=== PATIENT | male | born 1945 | race Caucasian/White ===

== ENCOUNTER 2017-11-11 14:08 | Emergency (ER) | payer MEDICARE, OTHER ==
[2017-11-11] MEDS ORDERED: NS 0.9% 1000 ML* 1,000 ML IV ONE (14:11)
--- NOTE | 2017-11-11 15:46 | ED ---
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 History of two chronic pressure sores x years. Wound was evaluated one week ago by PCP, patient was placed on Keflex with no improvement. Patient cannot get appointment with wound care before , was advised to come to the ED for evaluation by PCP. Patient states he often gets sweats when he gets infection in his pressure ulcers. Patient has no sensation below the chest. Denies fever, N/V, cough, sore throat, CP, SOB. History of indwelling urinary catheter. - History of Current Complaint Chief Complaint: EDRashSkinAbscess Time Seen by Provider: 11/11/17 15:10 Stated Complaint: PRESSURE SORE ON TAILBONE Hx Obtained From: Patient, Family/Inbound Telemarketer Onset/Duration: Started Weeks Ago Pain Intensity: 0 Skin Location: Discrete Alleviating Symptom(s): Unknown Associated Signs & Symptoms: Diaphoresis - Allergy/Home Medications Allergies/Adverse Reactions: Allergies Allergy/AdvReac Type Severity Reaction Status Date / Time No Known Allergies Allergy Verified 11/11/17 14:18 Home Medications: Home Medications Cephalexin CAP* [Keflex CAP*] 500 mg PO QID 11/11/17 [History Confirmed 11/11/17 ] Citric AC/Gluconolact/Mag Carb [Renacidin Irrigation Solution] 30 ml IR EVERY OTHER DAY 11/11/17 [History Confirmed 11/11/17] Trospium Chloride [Trospium Chloride ER] 60 mg PO DAILY 11/11/17 [History Confirmed 11/11/17] PMH/Surg Hx/FS Hx/Imm Hx - Surgical History Surgery Procedure, Year, and Place: cervical fusion,decubiti ,bladder Infectious Disease History: No Infectious Disease History: Denies: Traveled Outside the [place] in Last 30 Days - Social History Alcohol Use: None Substance Use Type: Reports: None Smoking Status (MU): Never Smoked Tobacco Review of Systems Positive: Skin Diaphoresis Eyes: Negative ENT: Negative Cardiovascular: Negative Respiratory: Negative Gastrointestinal: Other Genitourinary: Other Musculoskeletal: Other Skin: Other Neurological: Other Psychological: Other All Other Systems Reviewed And Are Negative: Yes Physical Exam - Summary Physical Exam Summary: Pressure ulcer in upper gluteal cleft about the size of a quarter at opening, but penetrates deeply. + purulent drainage noted with foul odor present. Mild erythema locally. Triage Information Reviewed: Yes Vital Signs On Initial Exam: Initial Vitals Temp Pulse Resp BP Pulse Ox 98.5 F 88 17 133/91 98 11/11/17 14:14 11/11/17 14:14 11/11/17 14:14 11/11/17 14:14 11/11/17 14:14 Vital Signs Reviewed: Yes Appearance: Positive: Well-Appearing Skin: Positive: Warm Head/Face: Positive: Normal Head/Face Inspection Eyes: Positive: Normal Neck: Positive: Supple Respiratory/Lung Sounds: Positive: Clear to Auscultation Cardiovascular: Positive: Normal Abdomen Description: Positive: Other: Musculoskeletal: Positive: Other Neurological: Positive: Other Psychiatric: Positive: Normal AVPU Assessment: Alert - [place] Coma Scale Best Eye Response: 4 - Spontaneous Best Motor Response: 6 - Obeys Commands Best Verbal Response: 5 - Oriented Coma Scale Total: 15 Diagnostics - Vital Signs Vital Signs Temp Pulse Resp BP Pulse Ox 11/11/17 14:14 98.5 F 88 17 133/91 98 - Laboratory Result Diagrams: 11/11/17 15:53 11/11/17 18:41 Lab Statement: Any lab studies that have been ordered have been reviewed, and results considered in the medical decision making process. 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 History of two chronic pressure sores x years. Wound was evaluated one week ago by PCP, patient was placed on Keflex with no improvement. Patient cannot get appointment with wound care before , was advised to come to the ED for evaluation by PCP. Patient states he often gets sweats when he gets infection in his pressure ulcers. Patient has no sensation below the chest. Denies fever, N/V, cough, sore throat, CP, SOB. History of indwelling urinary catheter. Pressure ulcer in upper gluteal cleft about the size of a quarter at opening, but penetrates deeply. + purulent drainage noted with foul odor present. Mild erythema locally. Discussed patient with Dr. Sandoval. Vital signs within normal limits and stable. X-ray negative for osteomyelitis. Elevated CRP but labs otherwise unremarkable. Wound negative for MRSA. Patient does not meet criteria for admission. Patient is already tried Keflex 1 week. Will provide patient with Rx for Bactrim and have him follow up with wound care. manages wounds daily and appears very well informed and competent in this area. Has been packing the wound daily. - Diagnoses Provider Diagnoses: Decubitus ulcer Discharge - Sign-Out/Discharge Documenting (check all that apply): Discharge/Admit/Transfer - Discharge Plan Condition: Stable Disposition: HOME Prescriptions: Sulfamethox/Trimethoprim DS* [Bactrim DS 800/160 TAB*] 1 tab PO BID 10 Days #20 tab Patient Education Materials: Acute Wound Care (ED), Chronic Wound Care (ED), Pressure Ulcer (ED) Referrals: Melissa Foss [Primary Care Provider] - Additional Instructions: Follow-up with wound care. Switch from Keflex to Bactrim. Return to the ED for any new or worsening symptoms - Billing Disposition and Condition Condition: STABLE Disposition: Home
[2017-11-11 16:31] LABS: EGFR Non-African American 297.3 (>60)
--- NOTE | 2017-11-11 16:36 | RAD ---
Indication: Back pain. Ulcer in the buttocks. 4 views of lumbar spine are reviewed. There are bridging syndesmophytes at L3-L4, L2-L3 and L1-L2. There is decrease in height of these vertebra. 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
[2017-11-11 16:50] LABS: ABS Basophils 0 10^3/ul (0-0.2); ABS Eosinophils 0.1 10^3/ul (0-0.6); ABS Lymphocytes 0.7 10^3/ul (1.0-4.8); ABS Monocytes 0.7 10^3/ul (0-0.8); ABS Neutrophils 11.9 10^3/ul (1.5-7.7); ABS Nucleated RBC 0 10^3/ul; Eosinophil % 0.5 % (0-6); Hematocrit 36 % (42-52); Hemoglobin 12.1 g/dl (14.0-18.0); Lymphocyte % 5.2 % (25-47); Mean Corpuscular HGB Conc 33 g/dl (31-36); Mean Corpuscular Hemoglobin 29 pg (27-31); Mean Corpuscular Volume 88 fL (80-94); Mean Platelet Volume 7.5 um3 (7.4-10.4); Nucleated Red Blood Cells % 0; Platelet Count 460 10^3/ul (150-450); Red Blood Count 4.11 10^6/ul (4.0-5.4); Red Cell Distribution Width 14 % (10.5-15); White Blood Count 13.4 10^3/ul (3.5-10.8)
[2017-11-11] MEDS ORDERED: Sulfamethox/Trimethoprim DS 800/160* TAB PO ONE (19:26)
[2017-11-11 20:09] VITALS: BP 133/74
[2017-11-11 20:21] LABS: Urine Appearance Cloudy; Urine Blood Negative (Negative); Urine Color Yellow; Urine Ketones Negative (Negative); Urine Protein 1+(30 mg/dL) (Negative); Urine Specific Gravity 1.025 (1.010-1.030); Urine Urobilinogen Positive (Negative)
--- NOTE | 2017-11-13 07:12 | ED ---
Progress - Progress Note Progress Note: Patient's preliminary culture revealed Streptococcus Anginosus. Patient was started on Bactrim. Final results pending. 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 History of two chronic pressure sores x years. Wound was evaluated one week ago by PCP, patient was placed on Keflex with no improvement. Patient cannot get appointment with wound care before , was advised to come to the ED for evaluation by PCP. Patient states he often gets sweats when he gets infection in his pressure ulcers. Patient has no sensation below the chest. Denies fever, N/V, cough, sore throat, CP, SOB. History of indwelling urinary catheter. Pressure ulcer in upper gluteal cleft about the size of a quarter at opening, but penetrates deeply. + purulent drainage noted with foul odor present. Mild erythema locally. Discussed patient with Dr. Sandoval. Vital signs within normal limits and stable. X-ray negative for osteomyelitis. Elevated CRP but labs otherwise unremarkable. Wound negative for MRSA. Patient does not meet criteria for admission. Patient is already tried Keflex 1 week. Will provide patient with Rx for Bactrim and have him follow up with wound care. manages wounds daily and appears very well informed and competent in this area. Has been packing the wound daily. - Diagnoses Provider Diagnoses: Decubitus ulcer Discharge - Sign-Out/Discharge Documenting (check all that apply): Post-Discharge Follow Up - Discharge Plan Condition: Stable Disposition: HOME Prescriptions: Sulfamethox/Trimethoprim DS* [Bactrim DS 800/160 TAB*] 1 tab PO BID 10 Days #20 tab Patient Education Materials: Acute Wound Care (ED), Chronic Wound Care (ED), Pressure Ulcer (ED) Referrals: Melissa Foss [Primary Care Provider] - Additional Instructions: Follow-up with wound care. Switch from Keflex to Bactrim. Return to the ED for any new or worsening symptoms - Billing Disposition and Condition Condition: STABLE Disposition: Home
--- NOTE | 2017-11-14 09:03 | ED ---
Progress - Progress Note Progress Note: Patient's preliminary wound culture revealed Streptococcus Anginosus. Patient was started on Bactrim. Final results pending. UPDATE: Patient's final wound culture results reveal negative MRSA and negative staph. He does have Streptococcus Anginosus, Haemophilus parainfluenza, and Bacteroides thetaiotaomicron. The sensitivity results for Streptococcus Anginosus have returned and Bactrim does not appear on the list. This organism does appear to be sensitive however to Keflex which patient was taking prior to being seen in the ED without improvement. Patient's preliminary urine culture has also returned with 25-50,000 pseudomonas aeruginosa. Spoke w/ Dr. Stephens - would consider augmentin if pt is worse. Spoke w/ pt - fever last night but none today and feels he may be a little better overall since switching to bactrim. reports wound is same (no better, no worse). Discussed that he has multiple organisms present in his wound as well as a UTI. Offered care in the ED today given his recent labs findings (13 wbc w/ left shift) but they prefer to wait for wound clinic visit tomorrow. They also want to refrain from starting tx for UTI today and will f/u w/ wound clinic provider tomorrow (they are scheduled to see Dr. Starr or Dr. Dutta at 9:30am). They will return to the ED if sx worsen in the meantime. 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 History of two chronic pressure sores x years. Wound was evaluated one week ago by PCP, patient was placed on Keflex with no improvement. Patient cannot get appointment with wound care before , was advised to come to the ED for evaluation by PCP. Patient states he often gets sweats when he gets infection in his pressure ulcers. Patient has no sensation below the chest. Denies fever, N/V, cough, sore throat, CP, SOB. History of indwelling urinary catheter. Pressure ulcer in upper gluteal cleft about the size of a quarter at opening, but penetrates deeply. + purulent drainage noted with foul odor present. Mild erythema locally. Discussed patient with Dr. Sandoval. Vital signs within normal limits and stable. X-ray negative for osteomyelitis. Elevated CRP but labs otherwise unremarkable. Wound negative for MRSA. Patient does not meet criteria for admission. Patient is already tried Keflex 1 week. Will provide patient with Rx for Bactrim and have him follow up with wound care. manages wounds daily and appears very well informed and competent in this area. Has been packing the wound daily. - Diagnoses Provider Diagnoses: Decubitus ulcer Discharge - Sign-Out/Discharge Documenting (check all that apply): Post-Discharge Follow Up - Discharge Plan Condition: Stable Disposition: HOME Prescriptions: Sulfamethox/Trimethoprim DS* [Bactrim DS 800/160 TAB*] 1 tab PO BID 10 Days #20 tab Patient Education Materials: Acute Wound Care (ED), Chronic Wound Care (ED), Pressure Ulcer (ED) Referrals: Melissa Foss [Primary Care Provider] - Additional Instructions: Follow-up with wound care. Switch from Keflex to Bactrim. Return to the ED for any new or worsening symptoms - Billing Disposition and Condition Condition: STABLE Disposition: Home
== END 2017-11-11 20:07 | disposition home or self-care (01) ==
LOC: ED 14:08
DX: L89.159 Pressure ulcer of sacral region, unspecified stage (principal); B95.4 Other streptococcus as the cause of diseases classified elsewhere; G82.50 Quadriplegia, unspecified; S14.109S Unspecified injury at unspecified level of cervical spinal cord, sequela; X58.XXXS Exposure to other specified factors, sequela
CPT/HCPCS: 36415; 72110; 80053; 81003; 81015; 83605; 85025; 86140; 87040; 87070; 87076; 87077; 87086; 87186; 87205; 87640; 87641; 96360; 96361; 99283; A9270-GY

== ENCOUNTER 2017-11-22 09:38 | Emergency (ER) | payer MEDICARE, OTHER ==
[2017-11-22] MEDS ORDERED: cefTRIAXone VIAL(*) 1,000 MG VIAL IM ONE (10:45)
--- NOTE | 2017-11-22 10:54 | ED ---
Artie Vazquez Stephanie, scribed for Hung Avery MD on 11/22/17 at 0954 . GI/ HPI - HPI Summary HPI Summary: The pt is a 71 y/o M IBA to the ED with c/o blocked graham catheter that began today. The pt denies N/V and fever. 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 - History of Current Complaint Time Seen by Provider: 11/22/17 09:41 Stated Complaint: BLOCKED CATHETER Hx Obtained From: Patient Onset/Duration: Started Hours Ago, Still Present Timing: Constant, Lasting Hours Current Severity: Mild Associated Signs and Symptoms: Negative: Nausea, Vomiting, Fever Aggravating Factor(s): Nothing Alleviating Factor(s): Nothing - Allergy/Home Medications Allergies/Adverse Reactions: Allergies Allergy/AdvReac Type Severity Reaction Status Date / Time No Known Allergies Allergy Verified 11/11/17 14:18 PMH/Surg Hx/FS Hx/Imm Hx Cardiovascular History: Denies: Hx Congenital Heart Disease Sensory History: Denies: Hx Legally Blind EENT History: Denies: Hx Deafness - Surgical History Surgery Procedure, Year, and Place: cervical fusion,decubiti ,bladder Infectious Disease History: Denies: Traveled Outside the [place] in Last 30 Days - Family History Known Family History: Negative: Renal Disease - Social History Occupation: Disabled Lives: Alone Alcohol Use: None Hx Substance Use: No Substance Use Type: Reports: None Hx Tobacco Use: No Smoking Status (MU): Never Smoked Tobacco Have You Smoked in the Last Year: No Review of Systems Negative: Fever Negative: Vomiting, Nausea Positive: other - blocked urinary catheter All Other Systems Reviewed And Are Negative: Yes Physical Exam - Summary Physical Exam Summary: Appearance: Well appearing, no pain distress Skin: warm, dry, reflects adequate perfusion Head/face: normal Eyes: EOMI, ERIK ENT: normal Neck: supple, non-tender Respiratory: CTA, breath sounds present Cardiovascular: RRR, pulses symmetrical, holo systolic murmur Abdomen: abd with gaseous distension, soft Bowel Sounds: present Musculoskeletal: normal, strength/ROM intact Neuro: normal, sensory motor intact, A&Ox3 Triage Information Reviewed: Yes Vital Signs On Initial Exam: Initial Vitals Temp Pulse Resp BP Pulse Ox 98.8 F 81 18 126/78 97 11/22/17 09:45 11/22/17 09:45 11/22/17 09:45 11/22/17 09:45 11/22/17 09:45 Vital Signs Reviewed: Yes Diagnostics - Vital Signs Vital Signs Temp Pulse Resp BP Pulse Ox 11/22/17 09:45 98.8 F 81 18 126/78 97 - Laboratory Lab Statement: Any lab studies that have been ordered have been reviewed, and results considered in the medical decision making process. GIGU Course/Dx - Course Course Of Treatment: Urology came and were able to place a Graham catheter after nursing had difficulty in removing the old one. Intramuscular Rocephin was given at the urologist wish. The patient was discharged in good condition to the wound care clinic for his appointment for sacral decubiti. - Diagnoses Provider Diagnoses: Mechanical complication of urinary catheter, Quadriplegia - Physician Notifications Discussed Care Of Patient With: Sukhi Horvath Time Discussed With Above Provider: 10:00 Instructed by Provider To: MD Will See In ED Discharge - Sign-Out/Discharge Documenting (check all that apply): Discharge/Admit/Transfer - Discharge - Discharge Plan Condition: Improved Disposition: HOME Patient Education Materials: Graham Catheter Placement and Care (ED) Referrals: Melissa Foss [Primary Care Provider] - Additional Instructions: Go to wound care now. Follow-up with your urologist. Likely, the next catheter change will require a larger catheter. Return with fever, worse, new symptoms or other concerns. - Billing Disposition and Condition Condition: IMPROVED Disposition: Home The documentation as recorded by the Artie terrazas Stephanie accurately reflects the service I personally performed and the decisions made by , Hung Avery MD.
[2017-11-22] MEDS ORDERED: Lidocaine 1%* 5 ML VIAL ONE ×2 (11:11→11:24)
[2017-11-22] MEDS ORDERED: cefTRIAXone VIAL(*) 1,000 MG VIAL ONE (11:24)
[2017-11-22 12:07] VITALS: BP 120/69
== END 2017-11-22 11:48 | disposition home or self-care (01) ==
LOC: ED 09:38
DX: T83.098A Other mechanical complication of other urinary catheter, initial encounter (principal); Y84.6 Urinary catheterization as the cause of abnormal reaction of the patient, or of later complication, without mention of misadventure at the time of the procedure; G82.50 Quadriplegia, unspecified; L89.154 Pressure ulcer of sacral region, stage 4; L89.312 Pressure ulcer of right buttock, stage 2; G82.52 Quadriplegia, C1-C4 incomplete; Z88.1 Allergy status to other antibiotic agents
CPT/HCPCS: 51702; 96372; 99282; J0696

== ENCOUNTER 2023-04-12 09:46 | Inpatient (IN) ==
[2023-04-12 11:18] LABS: ABS Lymphocytes 0.2 10^3/uL (1.0-4.8); ABS Monocytes 0.1 10^3/uL (0.0-1.1); Hematocrit 33.7 % (38-53); Hemoglobin 11.2 g/dL (13.2-16.3); Lymphocyte % 2.6 %; Mean Corpuscular Hemoglobin 29.2 pg (27-33); Mean Corpuscular Hgb Conc 33.2 g/dL (31-36); Mean Corpuscular Volume 88.1 fL (80-97); Mean Platelet Volume 6.2 fL (7.5-11.2); Platelet Count 337 10^3/uL (150-450); Red Blood Count 3.82 10^6/uL (4.06-5.63); White Blood Count 8.4 10^3/uL (3.6-10.2)
[2023-04-12 11:46] LABS: Activated Partial Thrombo Time 36.7 seconds (26.0-38.0); INR 1.81 (0.83-1.13)
[2023-04-12 11:51] LABS: High Sens Troponin Baseline 20 pg/mL (<20)
[2023-04-12 11:58] LABS: Albumin 3.6 g/dL (3.2-5.2); Anion Gap 9 mmol/L (2-16); CO2 Carbon Dioxide 26 mmol/L (22-32); Calcium 8.9 mg/dL (8.6-10.3); Chloride 93 mmol/L (101-111); Sodium 128 mmol/L (135-145); Total Bilirubin 0.7 mg/dL (0.2-1.0)
[2023-04-12 12:08] LABS: ALT 25 U/L (7-52); Albumin/Globulin Ratio 1.1 (1-3); Alkaline Phosphatase 86 U/L (35-149); Blood Urea Nitrogen 25 mg/dL (6-24); C Reactive Protein 114.51 mg/L (<8.01); Globulin 3.3 g/dL (2-4); Glucose 125 mg/dL (70-100); Total Protein 6.9 g/dL (6.4-8.9); eGFR CKD-EPI 124.1 (>60)
[2023-04-12 12:52] LABS: Resp Rate 12
[2023-04-12 12:55] LABS: PCO2 Arterial 63 mmHg (35-45); PO2 Arterial 188 mmHg (80-100)
[2023-04-12] MEDS ORDERED: Iohexol 350 (CONTRAST) 500 ML MDV IV ONE (13:13)
[2023-04-12 13:42] LABS: Potassium Redraw 4.6 mmol/L (3.5-5.0)
[2023-04-12 14:50] LABS: Urine Appearance Clear; Urine Bilirubin Negative (Negative); Urine Blood 1+ (Negative); Urine Color Yellow; Urine Glucose Negative (Negative); Urine Ketones 1+ (Negative); Urine Nitrite Negative (Negative); Urine Protein Negative (Negative); Urine Urobilinogen Negative (Negative)
[2023-04-12 15:02] LABS: Urine Bacteria 1+ (Absent); Urine Red Blood Cell 2+(6-10/hpf) (Absent); Urine White Blood Cell 3+(>20/hpf) (Absent)
[2023-04-12 15:29] LABS: Urine Specific Gravity > 1.060 (1.002-1.030)
[2023-04-12] MEDS ORDERED: Piperacillin/Tazobac 3.375 BAG 3.375 GM/100 ML BAG IV ONE (15:45)
[2023-04-12] MEDS ORDERED: Zosyn per Pharmacy NOTE FOLLOW UP SCH (16:00)
[2023-04-12 18:22] LABS: Urine Osmo 425 mOsm/kg (150-1150)
[2023-04-12] MEDS: ZOSYN 3.375 GM Q8H per EXTENDED INFUSION IV SCH (20:51)
[2023-04-13] MEDS: ZOSYN 3.375 GM Q8H per EXTENDED INFUSION IV SCH ×3 (04:18→22:00)
[2023-04-13 05:07] LABS: ABS Lymphocytes 0.4 10^3/uL (1.0-4.8); ABS Monocytes 0.6 10^3/uL (0.0-1.1); ABS Neutrophils 5.5 10^3/uL (1.5-7.6); ABS Nucleated RBC 0.01 10^3/ul; Eosinophil % 0.1 %; Hematocrit 29.3 % (38-53); Hemoglobin 10.1 g/dL (13.2-16.3); Lymphocyte % 6.5 %; Mean Corpuscular Hemoglobin 29.8 pg (27-33); Mean Corpuscular Hgb Conc 34.6 g/dL (31-36); Mean Corpuscular Volume 86.1 fL (80-97); Mean Platelet Volume 6.3 fL (7.5-11.2); Nucleated Red Blood Cells % 0.1 %/100WBC (0.0-0.8); Platelet Count 324 10^3/uL (150-450); Red Cell Distribution Width 14.8 % (12-17); White Blood Count 6.5 10^3/uL (3.6-10.2)
[2023-04-13 05:14] LABS: Albumin 3.2 g/dL (3.2-5.2); Magnesium 1.6 mg/dL (1.9-2.7); Potassium 4.3 mmol/L (3.5-5.0); Total Bilirubin 0.6 mg/dL (0.2-1.0)
[2023-04-13 05:20] LABS: Creatinine, Serum 0.31 mg/dL (0.67-1.17); Globulin 3.1 g/dL (2-4); Total Protein 6.3 g/dL (6.4-8.9); eGFR CKD-EPI 122.9 (>60)
[2023-04-13] MEDS ORDERED: Magnesium Sulfate 2 gm BAG 2 GM/50 ML BAG IVPB ONE (06:27)
[2023-04-13] MEDS ORDERED: Furosemide 40 mg/4 ml IV VIAL IV SLOW PU ONE (08:18)
[2023-04-13] MEDS ORDERED: Albuterol/Ipratropium NEB.SOL (2.5/0.5 MG) 3 ML NEB.SOLN INH SCH (09:00)
[2023-04-13] MEDS ORDERED: Albuterol/Ipratropium NEB.SOL (2.5/0.5 MG) 3 ML NEB.SOLN INH PRN (09:30)
[2023-04-13] MEDS: Enoxaparin 80 MG/0.8 ML SYR SUBCUT SCH ×2 (10:50→22:01)
[2023-04-13] MEDS: Polyethylene Glycol 3350 17 GM PACKET PO SCH (13:55)
[2023-04-14] MEDS: ZOSYN 3.375 GM Q8H per EXTENDED INFUSION IV SCH ×3 (04:57→20:20)
[2023-04-14 05:10] LABS: ABS Eosinophils 0.1 10^3/uL (0.0-0.5); ABS Lymphocytes 0.9 10^3/uL (1.0-4.8); ABS Monocytes 0.6 10^3/uL (0.0-1.1); ABS Neutrophils 4.1 10^3/uL (1.5-7.6); Eosinophil % 1.3 %; Hemoglobin 9.7 g/dL (13.2-16.3); Lymphocyte % 15.8 %; Mean Corpuscular Hemoglobin 29.6 pg (27-33); Mean Corpuscular Hgb Conc 34.5 g/dL (31-36); Mean Corpuscular Volume 85.8 fL (80-97); Mean Platelet Volume 5.8 fL (7.5-11.2); Nucleated Red Blood Cells % 0.1 %/100WBC (0.0-0.8); Platelet Count 310 10^3/uL (150-450); Red Blood Count 3.27 10^6/uL (4.06-5.63); Red Cell Distribution Width 14.8 % (12-17); White Blood Count 5.8 10^3/uL (3.6-10.2)
[2023-04-14 05:25] LABS: Calcium 8.4 mg/dL (8.6-10.3); Creatinine, Serum 0.35 mg/dL (0.67-1.17); Magnesium 1.6 mg/dL (1.9-2.7); Potassium 3.6 mmol/L (3.5-5.0); eGFR CKD-EPI 118.5 (>60)
[2023-04-14] MEDS ORDERED: Magnesium Sulfate 2 gm BAG 2 GM/50 ML BAG IVPB ONE (05:42)
[2023-04-14] MEDS: Polyethylene Glycol 3350 17 GM PACKET PO SCH (10:23)
[2023-04-14] MEDS: Enoxaparin 80 MG/0.8 ML SYR SUBCUT SCH ×2 (11:19→22:22)
[2023-04-15] MEDS: ZOSYN 3.375 GM Q8H per EXTENDED INFUSION IV SCH ×3 (04:47→19:58)
[2023-04-15 04:59] LABS: Calcium 8.4 mg/dL (8.6-10.3); Creatinine, Serum 0.34 mg/dL (0.67-1.17); Potassium 3.3 mmol/L (3.5-5.0); eGFR CKD-EPI 119.5 (>60)
[2023-04-15 08:03] LABS: ABS Eosinophils 0.1 10^3/uL (0.0-0.5); ABS Lymphocytes 0.6 10^3/uL (1.0-4.8); ABS Monocytes 0.4 10^3/uL (0.0-1.1); ABS Neutrophils 4.1 10^3/uL (1.5-7.6); ABS Nucleated RBC 0.01 10^3/ul; Hematocrit 28.5 % (38-53); Hemoglobin 9.7 g/dL (13.2-16.3); Lymphocyte % 11.4 %; Mean Corpuscular Hemoglobin 29.1 pg (27-33); Mean Corpuscular Hgb Conc 33.9 g/dL (31-36); Mean Corpuscular Volume 85.9 fL (80-97); Mean Platelet Volume 5.8 fL (7.5-11.2); Nucleated Red Blood Cells % 0.2 %/100WBC (0.0-0.8); Platelet Count 293 10^3/uL (150-450); Red Blood Count 3.32 10^6/uL (4.06-5.63); Red Cell Distribution Width 14.8 % (12-17); White Blood Count 5.3 10^3/uL (3.6-10.2)
[2023-04-15 08:09] LABS: INR 1.46 (0.83-1.13)
[2023-04-15 08:43] LABS: Magnesium 1.7 mg/dL (1.9-2.7)
[2023-04-15] MEDS: Enoxaparin 80 MG/0.8 ML SYR SUBCUT SCH ×2 (09:44→13:38)
[2023-04-15] MEDS: Polyethylene Glycol 3350 17 GM PACKET PO SCH (09:51)
[2023-04-15] MEDS ORDERED: Magnesium Sulfate 2 gm BAG 2 GM/50 ML BAG IVPB ONE (12:10)
[2023-04-15] MEDS ORDERED: Potassium Chloride LIQUID 20 MEQ/15 ML LIQUID PO ONE (12:10)
[2023-04-15] MEDS ORDERED: Magnesium Sulfate IV 1GM/100ML 1 GM/100 ML BAG IV ONE (14:10)
[2023-04-15] MEDS ORDERED: Lactated Ringers 1000 ml BAG 500 ML IV ONE (18:32)
[2023-04-16] MEDS: Enoxaparin 80 MG/0.8 ML SYR SUBCUT SCH ×3 (00:15→21:57)
[2023-04-16 04:36] LABS: ABS Basophils 0.1 10^3/uL (0.0-0.1); ABS Eosinophils 0.2 10^3/uL (0.0-0.5); ABS Lymphocytes 0.4 10^3/uL (1.0-4.8); ABS Monocytes 0.4 10^3/uL (0.0-1.1); ABS Neutrophils 4.2 10^3/uL (1.5-7.6); Eosinophil % 3.4 %; Hematocrit 28.1 % (38-53); Hemoglobin 9.5 g/dL (13.2-16.3); Mean Corpuscular Hemoglobin 29.2 pg (27-33); Mean Corpuscular Hgb Conc 33.9 g/dL (31-36); Mean Corpuscular Volume 86.4 fL (80-97); Platelet Count 271 10^3/uL (150-450); Red Blood Count 3.25 10^6/uL (4.06-5.63); Red Cell Distribution Width 14.9 % (12-17); White Blood Count 5.3 10^3/uL (3.6-10.2)
[2023-04-16 05:06] LABS: Calcium 8.4 mg/dL (8.6-10.3); Creatinine, Serum 0.34 mg/dL (0.67-1.17); Magnesium 2.1 mg/dL (1.9-2.7); Potassium 3.5 mmol/L (3.5-5.0); eGFR CKD-EPI 119.5 (>60)
[2023-04-16] MEDS: ZOSYN 3.375 GM Q8H per EXTENDED INFUSION IV SCH ×3 (05:06→21:55)
[2023-04-16] MEDS ORDERED: Potassium Chlor 20 meq TAB.ER PO ONE ×2 (07:45→10:00)
[2023-04-16] MEDS: Polyethylene Glycol 3350 17 GM PACKET PO SCH (09:55)
[2023-04-17 04:43] LABS: ABS Eosinophils 0.2 10^3/uL (0.0-0.5); ABS Lymphocytes 0.6 10^3/uL (1.0-4.8); ABS Monocytes 0.4 10^3/uL (0.0-1.1); Eosinophil % 2.9 %; Hematocrit 28.8 % (38-53); Hemoglobin 9.8 g/dL (13.2-16.3); Lymphocyte % 12.2 %; Mean Corpuscular Hemoglobin 29.3 pg (27-33); Mean Corpuscular Volume 86.1 fL (80-97); Mean Platelet Volume 6.1 fL (7.5-11.2); Platelet Count 235 10^3/uL (150-450); Red Blood Count 3.34 10^6/uL (4.06-5.63); Red Cell Distribution Width 14.9 % (12-17); White Blood Count 5.3 10^3/uL (3.6-10.2)
[2023-04-17 04:58] LABS: Calcium 8.3 mg/dL (8.6-10.3); Creatinine, Serum 0.36 mg/dL (0.67-1.17); Magnesium 1.7 mg/dL (1.9-2.7); Potassium 3.8 mmol/L (3.5-5.0); eGFR CKD-EPI 117.5 (>60)
[2023-04-17] MEDS: ZOSYN 3.375 GM Q8H per EXTENDED INFUSION IV SCH ×3 (06:15→20:37)
[2023-04-17] MEDS ORDERED: Potassium Chloride LIQUID 20 MEQ/15 ML LIQUID PO ONE (07:43)
[2023-04-17] MEDS ORDERED: Magnesium Sulfate 2 gm BAG 2 GM/50 ML BAG IVPB ONE (08:00)
[2023-04-17] MEDS: Polyethylene Glycol 3350 17 GM PACKET PO SCH (09:32)
[2023-04-17] MEDS: Enoxaparin 80 MG/0.8 ML SYR SUBCUT SCH ×2 (12:01→20:37)
[2023-04-18] MEDS: ZOSYN 3.375 GM Q8H per EXTENDED INFUSION IV SCH ×3 (04:33→20:53)
[2023-04-18 04:55] LABS: ABS Basophils 0.1 10^3/uL (0.0-0.1); ABS Eosinophils 0.2 10^3/uL (0.0-0.5); ABS Lymphocytes 0.6 10^3/uL (1.0-4.8); ABS Monocytes 0.4 10^3/uL (0.0-1.1); ABS Neutrophils 3.7 10^3/uL (1.5-7.6); Eosinophil % 3.8 %; Hematocrit 29.3 % (38-53); Hemoglobin 9.9 g/dL (13.2-16.3); Mean Corpuscular Hemoglobin 29.2 pg (27-33); Mean Corpuscular Hgb Conc 33.8 g/dL (31-36); Mean Corpuscular Volume 86.4 fL (80-97); Mean Platelet Volume 6.4 fL (7.5-11.2); Nucleated Red Blood Cells % 0.1 %/100WBC (0.0-0.8); Platelet Count 226 10^3/uL (150-450); Red Cell Distribution Width 14.9 % (12-17)
[2023-04-18 05:13] LABS: Calcium 8.4 mg/dL (8.6-10.3); Creatinine, Serum 0.34 mg/dL (0.67-1.17); Magnesium 1.9 mg/dL (1.9-2.7); eGFR CKD-EPI 119.5 (>60)
[2023-04-18] MEDS: Polyethylene Glycol 3350 17 GM PACKET PO SCH (08:41)
[2023-04-18] MEDS: Potassium Chlor 20 meq TAB.ER PO SCH (08:43)
[2023-04-18] MEDS: Enoxaparin 80 MG/0.8 ML SYR SUBCUT SCH ×2 (11:56→20:53)
[2023-04-19] MEDS: ZOSYN 3.375 GM Q8H per EXTENDED INFUSION IV SCH ×2 (04:15→16:17)
[2023-04-19 04:26] LABS: ABS Basophils 0.1 10^3/uL (0.0-0.1); ABS Eosinophils 0.2 10^3/uL (0.0-0.5); ABS Lymphocytes 0.7 10^3/uL (1.0-4.8); ABS Monocytes 0.4 10^3/uL (0.0-1.1); ABS Neutrophils 4.7 10^3/uL (1.5-7.6); Eosinophil % 3.2 %; Hematocrit 31.7 % (38-53); Hemoglobin 10.6 g/dL (13.2-16.3); Lymphocyte % 11.1 %; Mean Corpuscular Hemoglobin 28.9 pg (27-33); Mean Corpuscular Hgb Conc 33.3 g/dL (31-36); Mean Corpuscular Volume 86.9 fL (80-97); Mean Platelet Volume 6.2 fL (7.5-11.2); Platelet Count 224 10^3/uL (150-450); Red Blood Count 3.65 10^6/uL (4.06-5.63); Red Cell Distribution Width 15.3 % (12-17); White Blood Count 6.1 10^3/uL (3.6-10.2)
[2023-04-19 04:51] LABS: Calcium 8.6 mg/dL (8.6-10.3); Creatinine, Serum 0.39 mg/dL (0.67-1.17); Magnesium 1.6 mg/dL (1.9-2.7); Phosphorus 2.2 mg/dL (2.5-5.0); Potassium 3.8 mmol/L (3.5-5.0); eGFR CKD-EPI 114.7 (>60)
[2023-04-19] MEDS ORDERED: Lactated Ringers 1000 ml BAG 1,000 ML IV ONE (06:19)
[2023-04-19] MEDS: Potassium Chlor 20 meq TAB.ER PO SCH (08:40)
[2023-04-19] MEDS: Polyethylene Glycol 3350 17 GM PACKET PO SCH ×2 (08:41→08:44)
[2023-04-19] MEDS: Enoxaparin 80 MG/0.8 ML SYR SUBCUT SCH ×2 (11:30→21:30)
[2023-04-20 03:51] LABS: ABS Basophils 0.1 10^3/uL (0.0-0.1); ABS Eosinophils 0.2 10^3/uL (0.0-0.5); ABS Lymphocytes 0.6 10^3/uL (1.0-4.8); ABS Monocytes 0.4 10^3/uL (0.0-1.1); ABS Neutrophils 4.2 10^3/uL (1.5-7.6); Eosinophil % 3.9 %; Hematocrit 30.7 % (38-53); Hemoglobin 10.3 g/dL (13.2-16.3); Lymphocyte % 10.9 %; Mean Corpuscular Hemoglobin 29.1 pg (27-33); Mean Corpuscular Hgb Conc 33.6 g/dL (31-36); Mean Corpuscular Volume 86.5 fL (80-97); Mean Platelet Volume 6.4 fL (7.5-11.2); Nucleated Red Blood Cells % 0.1 %/100WBC (0.0-0.8); Platelet Count 229 10^3/uL (150-450); Red Blood Count 3.55 10^6/uL (4.06-5.63); Red Cell Distribution Width 15.5 % (12-17); White Blood Count 5.5 10^3/uL (3.6-10.2)
[2023-04-20 04:06] LABS: Calcium 8.7 mg/dL (8.6-10.3); Creatinine, Serum 0.32 mg/dL (0.67-1.17); Potassium 3.7 mmol/L (3.5-5.0); eGFR CKD-EPI 121.7 (>60)
[2023-04-20 09:00] LABS: Magnesium 1.6 mg/dL (1.9-2.7)
[2023-04-20] MEDS ORDERED: Magnesium Sulfate 2 gm BAG 2 GM/50 ML BAG IVPB ONE (09:18)
[2023-04-20] MEDS: Enoxaparin 80 MG/0.8 ML SYR SUBCUT SCH ×2 (09:33→22:54)
[2023-04-20] MEDS: Potassium Chlor 20 meq TAB.ER PO SCH (09:34)
[2023-04-20] MEDS: Polyethylene Glycol 3350 17 GM PACKET PO SCH (09:54)
[2023-04-20] MEDS ORDERED: Magnesium Sulfate IV 1GM/100ML 1 GM/100 ML BAG IV ONE (11:18)
[2023-04-21 05:14] LABS: Calcium 8.7 mg/dL (8.6-10.3); Creatinine, Serum 0.34 mg/dL (0.67-1.17); eGFR CKD-EPI 119.5 (>60)
[2023-04-21] MEDS: Polyethylene Glycol 3350 17 GM PACKET PO SCH (08:51)
[2023-04-21] MEDS: Potassium Chlor 20 meq TAB.ER PO SCH (08:51)
[2023-04-21] MEDS: Enoxaparin 80 MG/0.8 ML SYR SUBCUT SCH ×2 (10:26→21:49)
[2023-04-22] MEDS: Polyethylene Glycol 3350 17 GM PACKET PO SCH (09:03)
[2023-04-22] MEDS: Potassium Chlor 20 meq TAB.ER PO SCH (09:03)
[2023-04-23] MEDS: Polyethylene Glycol 3350 17 GM PACKET PO SCH (09:03)
[2023-04-23] MEDS: Potassium Chlor 20 meq TAB.ER PO SCH (09:03)
[2023-04-23 10:34] VITALS: BP 117/67
== END 2023-04-23 12:30 | disposition home or self-care (01) | DRG 698 ==
LOC: ED 09:46 → EDHOLD 15:13 → ICU 15:35 → MEDTELE 04-21 16:40
PROVIDERS: ADMIT Surgery Surgical Critical Care; ATTEND Surgery Surgical Critical Care